=== PATIENT | male | born 1985 | race Two or more races ===

== ENCOUNTER 2017-08-08 08:09 | Emergency (ER) | payer OTHER ==
[~2017-08-08] VITALS: Ht 172.7 cm; Wt 86.2 kg
[~2017-08-08 08:09] MED LIST: AIRBORNE EFFER1 EACH PO; HUMALOG MI100 UNIT/1; HUMALOG100 U/M1; KETO10TA2 PO; LEVEMIR100 U/M1; OSEL75CA PO
[2017-08-08] MEDS ORDERED: LEVEMIR100 UNIT/1 (08:34)
== END 2017-08-08 13:42 | disposition home or self-care (01) ==
LOC: ER 08:09
DX: S00.83XA Contusion of other part of head, initial encounter (principal); R51 Headache; W18.39XA Other fall on same level, initial encounter; Y93.89 Activity, other specified; Y92.89 Other specified places as the place of occurrence of the external cause; Y99.8 Other external cause status